=== PATIENT | female | born 1965 | race American Indian/Alaskan Native ===

== ENCOUNTER 2016-11-29 20:38 | Emergency (ER) | payer OTHER ==
[2016-11-29] MEDS ORDERED: TORADOL ONE (20:53)
[2016-11-29] MEDS ORDERED: NACL 0.9% 1000 ML 1,000 ML ONE (20:53)
[2016-11-29] MEDS ORDERED: NACL 0.9% 1000 ML 1,000 ML IV ONE (21:04)
[2016-11-29] MEDS ORDERED: TORADOL IV ONE (21:04)
[2016-11-29 21:15] LABS: Basophils % (Auto) 0.2 % (0.0-1.8); Eosinophils % (Auto) 1.3 % (0.0-4.3); Hematocrit 38.2 % (30.3-42.9); Hemoglobin 12.8 gm/dl (10.1-14.3); Mean Corpuscular HGB Conc 33 % (30-34); Mean Corpuscular Hemoglobin 29 pg (28-32); Mean Corpuscular Volume 86 fl (79-97); Platelet Count 298 K/mm3 (140-440); Red Blood Count 4.46 M/mm3 (3.65-5.03); Red Cell Distribution Width 14.5 % (13.2-15.2)
[2016-11-29 21:17] LABS: Alanine Aminotransferase 12 units/L (7-56); Albumin 4.3 g/dL (3.9-5); Albumin/Globulin Ratio 1.1 %; Alkaline Phosphatase 65 units/L (35-129); BUN/Creatinine Ratio 21.66; Blood Urea Nitrogen 13 mg/dL (7-17); Calcium 9.5 mg/dL (8.4-10.2); Carbon Dioxide 22 mmol/L (22-30); Glucose 124 mg/dL (65-100); Lipase 33 units/L (13-60); Total Protein 8.1 g/dL (6.3-8.2)
[2016-11-29 21:18] LABS: Anion Gap 22 mmol/L; Chloride 96.4 mmol/L (98-107); Potassium 3.7 mmol/L (3.6-5.0); Sodium 137 mmol/L (137-145)
[2016-11-30] MEDS ORDERED: NACL 0.9% 1000 ML 1,000 ML IV ONE (00:53)
[2016-11-30] MEDS ORDERED: ZOFRAN IV ONE (00:53)
[2016-11-30] MEDS ORDERED: MORPHINE IV ONE (00:53)
[2016-11-30] MEDS ORDERED: TORADOL IV ONE (00:53)
--- NOTE | 2016-11-30 01:14 | Emergency Department Report ---
ED Abdominal Pain HPI - General Chief Complaint: Abdominal Pain Stated Complaint: ABDOMINAL PAIN/NUMBNESS Time Seen by Provider: 11/30/16 00:52 Source: patient Mode of arrival: Ambulatory Limitations: No Limitations - History of Present Illness MD Complaint: abdominal pain -: Gradual Location: LLQ, RLQ, suprapubic Radiation: none Migration to: no migration Severity: moderate Severity scale (0 -10): 8 Quality: stabbing, aching, fullness, sharp Consistency: constant Improves With: nothing Worsens With: nothing Associated Symptoms: denies: nausea, vomiting, diarrhea, fever, chills, constipation, dysuria, hematemesis, hematochezia, melena, hematuria, anorexia, syncope - Related Data Previous Rx's Medication Instructions Recorded Last Taken Type HYDROcodone/APAP 5-325 [[place] 1 each PO BID #12 tablet 11/30/16 Unknown Rx 5/325] Allergies Allergy/AdvReac Type Severity Reaction Status Date / Time codeine Allergy Hives Verified 11/29/16 20:43 ED Review of Systems ROS: Stated complaint: ABDOMINAL PAIN/NUMBNESS Other details as noted in HPI Comment: All other systems reviewed and negative ED Past Medical Hx - Past Medical History Previous Medical History?: Yes Hx Diabetes: Yes Additional medical history: high cholesterol - Surgical History Past Surgical History?: Yes Additional Surgical History: ovarian cyst removed - Social History Smoking Status: Never Smoker Substance Use Type: Alcohol, Prescribed - Medications Home Medications: Home Medications Medication Instructions Recorded Confirmed Last Taken Type HYDROcodone/APAP 5-325 [[place] 1 each PO BID #12 tablet 11/30/16 Unknown Rx 5/325] ED Physical Exam - General Limitations: No Limitations General appearance: alert, in no apparent distress - Head Head exam: Present: atraumatic, normocephalic - Eye Eye exam: Present: normal appearance, PERRL, EOMI - ENT ENT exam: Present: normal exam, normal orophraynx, mucous membranes moist - Neck Neck exam: Present: normal inspection - Respiratory Respiratory exam: Present: normal lung sounds bilaterally. Absent: respiratory distress, wheezes, rales, rhonchi - Cardiovascular Cardiovascular Exam: Present: regular rate, normal rhythm. Absent: systolic murmur, diastolic murmur, rubs, gallop - GI/Abdominal GI/Abdominal exam: Present: soft, tenderness (left lower quadrant, no right side tenderness), normal bowel sounds. Absent: distended, guarding, rebound, rigid - Extremities Exam Extremities exam: Present: normal inspection - Back Exam Back exam: Present: normal inspection - Neurological Exam Neurological exam: Present: alert, oriented X3 - Psychiatric Psychiatric exam: Present: normal affect, normal mood - Skin Skin exam: Present: warm, dry, intact, normal color. Absent: rash ED Course Vital Signs 11/29/16 11/30/16 11/30/16 20:43 01:30 01:41 Temperature 97.6 F 98 F Pulse Rate 120 H 82 Respiratory 26 H 16 16 Rate Blood Pressure 108/67 Blood Pressure 154/85 [Left] O2 Sat by Pulse 99 100 100 Oximetry ED Medical Decision Making - Lab Data Result diagrams: 11/29/16 20:48 11/29/16 20:48 - Medical Decision Making will need abdomen and pelvis ct for evaluate for diverticulitis , no evidence to suspect pyelo or appy, she ate food prior to being placed in the ER, will sign out patient to Dr. Herrera who will be checking the CT results Critical care attestation.: If time is entered above; I have spent that time in minutes in the direct care of this critically ill patient, excluding procedure time. ED Disposition Clinical Impression: Abdominal pain Disposition: DC-01 TO HOME OR SELFCARE Is pt being admited?: No Does the pt Need Aspirin: No Condition: Good Instructions: Abdominal Pain (ED) Prescriptions: HYDROcodone/APAP 5-325 [[place] 5/325] 1 each PO BID #12 tablet Referrals: PRIMARY CARE, [Primary Care Provider] - 3-5 Days
[2016-11-30] MEDS ORDERED: NACL ONE (01:16)
[2016-11-30 01:59] LABS: Bilirubin,Urine NEG (Negative); Blood,Urine NEG (Negative); Ketones,Urine NEG (Negative); Leukocyte Esterase,Urine NEG (Negative); Nitrite,Urine NEG (Negative); Protein,Urine <15 mg/dL mg/dL (Negative); Urobilinogen,Urine < 2.0 mg/dL (<2.0); WBC,Urine < 1.0 /HPF (0.0-6.0)
--- NOTE | 2016-11-30 02:43 | Cat Scan Report ---
FINAL REPORT EXAM: CT ABDOMEN PELVIS W CON HISTORY: Abdominal Pain VERY LOW PELVIC PAIN COMPARISON: None available. TECHNIQUE: Contiguous axial images were obtained. Additional sagittal and coronal reformatted images were obtained. Administration of IV contrast given per institution protocol. Images submitted for interpretation. 100 cc Omnipaque [id number]. FINDINGS: Mild linear atelectasis at the lung bases. No calcified gallstones. No biliary dilatation. Very mild fatty infiltration of the liver. No focal hepatic lesion. Homogeneous enhancement spleen and pancreas. Nodular thickening of adrenal glands. 4 millimeter fatty lesion at the superior margin right kidney compatible tiny benign angiomyolipoma. 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 No suspicious solid renal lesion. No hydronephrosis. Aorta and IVC are normal in caliber. Normal opacification of the aorta. Urinary bladder is unremarkable. Lobulated contour of the uterus. There is at least 1 fibroid at the posterior fundal margin the uterus measuring 2.1 x 2.1 centimeters. 2.6 x 2.1 centimeter right ovarian cystic structure. This may partially ruptured with fluid in the pelvis. The left ovary is unremarkable. Trace fluid in the pelvis within physiologic limits for patient's presumed pre or perimenopausal state. No lymphadenopathy. The appendix is gas-filled. The appendix measures up to 6-7 millimeters in diameter within normal limits. No adjacent fat stranding or fluid to suggest acute inflammation of the appendix. Large and small bowel loops normal in caliber. Lumbar vertebral body heights preserved. Mildly prominent Schmorl's node deformities involving a lower thoracic vertebral bodies. Bony pelvis is grossly intact. IMPRESSION: Trace fluid within the pelvis within physiologic limits for patient's presumed pre or perimenopausal state. 2.6 x 1.6 centimeter right ovarian cystic structure. This may partially ruptured with fluid in the pelvis. Fibroid uterus. Followup pelvic ultrasound suggested in the next 8 weeks to assess stability of the right ovarian cyst. This has a simple appearance by CT. Otherwise, no focal inflammatory changes of the abdomen and pelvis.
[2016-11-30 05:18] VITALS: BP 126/79
== END 2016-11-30 05:32 | disposition home or self-care (01) ==
LOC: ED 20:38
DX: R10.30 Lower abdominal pain, unspecified (principal)
CPT/HCPCS: 36415; 74177; 80053; 81001; 82962; 83690; 85025; 96361; 96374; 96375; 96376; 99284; J1885; J2270; J2405; J7030; Q9967